=== PATIENT | male | born 1960 | race Caucasian/White ===

== ENCOUNTER 2016-07-16 09:59 | Emergency (ER) | payer OTHER ==
[~2016-07-16] VITALS: Ht 167.6 cm; Wt 81.8 kg
[2016-07-16 10:03] VITALS: Ht 167.6 cm; Wt 81.8 kg
[2016-07-16 10:39] VITALS: BP 94/60; PULSE 74; RESP 21
--- NOTE | 2016-07-16 12:20 | ERD ---
ER Documentation Chief Complaint Date/Time DATE: 07/16/16 TIME: 12:18 Chief Complaint blood sugar problems HPI Patient is a 55-year-old male with diabetes who presents with low blood sugar. The patient was brought in by ambulance. He was post of a blood draw done today at the clinic so he was fasting. However he also took his insulin this morning. He passed out at the clinic. He was given D50 and orange juice. He has not been given any food as of yet. He says that he has no complaints at this point and feels well. His sugar by paramedics was 150. ROS All systems reviewed and are negative except as per history of present illness. Allergies Allergies: Coded Allergies: No Known Allergy (Unverified , 07/16/16) PMhx/Soc History of Surgery: No Anesthesia Reaction: No Hx Neurological Disorder: No Hx Respiratory Disorders: No Hx Cardiac Disorders: No Hx Psychiatric Problems: No Hx Miscellaneous Medical Probl: Yes (Diabetes) Hx Alcohol Use: No Hx Substance Use: No Hx Tobacco Use: No Smoking Status: Never smoker FmHx Family History: diabetes Physical Exam Vitals Vital Signs Date Time Temp Pulse Resp B/P Pulse Ox O2 Delivery O2 Flow Rate FiO2 07/16/16 10:39 74 21 94/60 100 Room Air 07/16/16 10:03 98.0 71 17 157/144 100 Physical Exam Const: No acute distress Head: Atraumatic Eyes: Normal Conjunctiva ENT: Normal External Ears, Nose and Mouth. Neck: Full range of motion..~ No meningismus. Resp: Clear to auscultation bilaterally Cardio: Regular rate and rhythm, no murmurs Abd: Soft, non tender, non distended. Normal bowel sounds Skin: No petechiae or rashes Back: No midline or flank tenderness Ext: No cyanosis, or edema Neur: Awake and alert Psych: Normal Mood and Affect Results 24 hrs Laboratory Tests Test 07/16/16 10:05 Bedside Glucose 187mg/dL [facility] Patient is a 55-year-old male with diabetes who presents for transient hypoglycemia. The patient had low blood sugar because he took his insulin and did not eat anything. The patient was given D50 and juice at the clinic. He feels much better. He was given a sandwich here in the emergency department. He had an Accu-Chek which was normal. The patient will be discharged home and can return for any worsening symptoms. I told him in the future when he is fasting that he does not take his insulin at morning. He can return for any worsening symptoms. I doubt serious cardiac cause of his symptoms. Departure Diagnosis: Primary Impression: Hypoglycemia Condition: Fair Patient Instructions: Hypoglycemia (Low Blood Sugar) Referrals: Your doctor Additional Instructions: Llame al doctor MAANA y darrel stella EMILY PARA DENTRO DE 1-2 FLORES.Dgale a la secretaria que nosotros le instruimos hacer esta emily.Avise o llame si weldon condicin se empeora antes de la emily. Regresa aqui si peor o no mejor. WINTER ARENAS MD July 16, 2016 12:20
== END 2016-07-16 10:41 | disposition home or self-care (01) ==
LOC: E/R 09:59
DX: E11.649 Type 2 diabetes mellitus with hypoglycemia without coma (principal)
CPT/HCPCS: 82962; Z7502; 99283